=== PATIENT | female | born 1990 | race Caucasian/White ===

== ENCOUNTER 2017-07-01 12:04 | Emergency (ER) | payer OTHER ==
[~2017-07-01] VITALS: Ht 165.1 cm; Wt 63.5 kg
[2017-07-01 12:13] VITALS: BP 119/75
--- NOTE | 2017-07-01 12:13 | NUR ---
PT AMBULATED TO BED 7.
--- NOTE | 2017-07-01 12:14 | NUR ---
26F BIB SELF C/O NASAL CONGESTION WITH COUGH X 2 DAYS.DENIES N/V/D; SKIN IS PINK/WARM/DRY; AAOX4 WITH EVEN AND STEADY GAIT; LUNGS CLEAR BL; HR EVEN AND REGULAR; PT DENIES ANY FEVER, CP OR SOB AT THIS TIME; PATIENT STATES PAIN OF 0/10 AT THIS TIME; VSS; PATIENT POSITIONED FOR COMFORT; HOB ELEVATED; BEDRAILS UP X2; BED DOWN. ER MD MADE AWARE OF PT STATUS.
--- NOTE | 2017-07-01 12:30 | NUR ---
ER MD DR. MARTINO EVALUATING PT AT BEDSIDE.
[2017-07-01 12:40] VITALS: BP 129/85
--- NOTE | 2017-07-01 12:40 | NUR ---
Patient discharged with v/s stable. Written and verbal after care instructions given and explained. Patient verbalized understanding. Ambulatory with steady gait. All questions addressed prior to discharge. Advised to follow up with PMD.
== END 2017-07-01 12:40 | disposition home or self-care (01) ==
LOC: EEVIPCON 12:04 → MED 12:04
DX: J01.90 Acute sinusitis, unspecified (principal); J20.9 Acute bronchitis, unspecified; J45.909 Unspecified asthma, uncomplicated
CPT/HCPCS: 99281

== ENCOUNTER 2017-10-12 10:13 | Emergency (ER) | payer OTHER ==
[~2017-10-12] VITALS: Ht 167.6 cm; Wt 63.5 kg
[2017-10-12 10:18] VITALS: BP 123/76
--- NOTE | 2017-10-12 10:18 | NUR ---
Patient to bed 07.
--- NOTE | 2017-10-12 10:28 | NUR ---
PT PRESENTS TO ER W/C/O NON RADIATING SHARP CHEST PAIN SINCE THIS AM.PT STATES SHE'S HAD INTERMITTENT CHEST PAIN OVER THE PAST 2 WEEKS, WITH LAST EPISODE LAST NOC, BUT THIS AM THE PAIN BECAME MORE INTENSE. PT ALSO STATES PAIN IS IN CENTER OF HER CHEST.DENIES N/V/D; SKIN IS PINK/WARM/DRY; AAOX4 WITH EVEN AND STEADY GAIT; HR EVEN AND REGULAR; PT DENIES ANY FEVER COUGH AT THIS TIME; PATIENT STATES PAIN OF 8/10 AT THIS TIME;PATIENT POSITIONED FOR COMFORT; HOB ELEVATED; BEDRAILS UP X2; BED DOWN. ER MD MADE AWARE OF PT STATUS.
[2017-10-12] MEDS ORDERED: ASPIRIN 81 MG TAB.CHEW PO ONE (10:30)
[2017-10-12] MEDS ORDERED: NACL 0.9% 1,000 ML IV ONE (10:30)
[2017-10-12] MEDS ORDERED: KETOROLAC 30 MG/ML VIAL IVP ONE (11:10)
[2017-10-12 11:25] LABS: ALBUMIN 3.8 g/dL (3.4-5.0); CREATININE 0.7 mg/dL (0.6-1.3); TOTAL BILIRUBIN 0.6 mg/dL (0.0-1.0)
[2017-10-12 11:29] LABS: PROTHROMBIN TIME 10.4 secs (10.8-13.4)
[2017-10-12 11:38] LABS: RED BLOOD CELL COUNT(AUTO) 4.48 MIL/uL (4.20-5.40); WHITE BLOOD COUNT (AUTO) 6.3 K/uL (4.8-10.8)
[2017-10-12 11:39] LABS: EOSINOPHILS % (AUTO) 3.4 % (0.0-4.0); HEMATOCRIT 39.6 % (36-48); HEMOGLOBIN 13.6 g/dL (12.0-16.0); MEAN CORPUSCULAR HEMOGLOBIN 30 pg (27-31); MEAN CORPUSCULAR HGB CONC 34 g/dL (33-37); MEAN CORPUSCULAR VOLUME 88 fL (80-94); MONOCYTES % (AUTO) 9.4 % (1.7-9.3); NEUTROPHILS % (AUTO) 57.7 % (42.2-75.2); PLATELET COUNT (AUTO) 298 K/uL (140-450); RED CELL DISTRIBUTION WIDTH 13.1 % (11.6-13.7)
[2017-10-12 11:40] LABS: BASOPHILS % (AUTO) 0.5 % (0.0-2.0); EOSINOPHILS # (AUTO) 0.2 K/uL (0-0.4); LYMPHOCYTES # (AUTO) 1.6 K/uL (2.5-16.5); MONOCYTES # (AUTO) 0.6 K/uL (0.8-1.0); NEUTROPHILS # (AUTO) 3.6 K/uL (1.8-7.7)
[2017-10-12 12:33] VITALS: BP 101/63
--- NOTE | 2017-10-12 12:33 | NUR ---
Patient discharged with v/s stable. Written and verbal after care instructions given and explained. Patient alert, oriented and verbalized understanding of instructions. Ambulatory with steady gait. All questions addressed prior to discharge. ID band removed. Patient advised to follow up with PMD. Rx of PREDNISONE AND MOTRIN given. Patient educated on indication of medication including possible reaction and side effects. Opportunity to ask questions provided and answered.
== END 2017-10-12 12:33 | disposition home or self-care (01) ==
LOC: MED 10:13
DX: R09.1 Pleurisy (principal); R03.0 Elevated blood-pressure reading, without diagnosis of hypertension; J45.909 Unspecified asthma, uncomplicated
CPT/HCPCS: 36415; 71010; 80053; 84484; 85025; 85610; 85730; 93005; 96361; 96374; 99285; J1885; J7030

== ENCOUNTER 2017-10-13 14:41 | Emergency (ER) | payer OTHER ==
[~2017-10-13] VITALS: Ht 167.6 cm; Wt 63.5 kg
[2017-10-13 14:42] VITALS: BP 124/93
--- NOTE | 2017-10-13 14:45 | NUR ---
Patient to bed 11.
--- NOTE | 2017-10-13 14:53 | NUR ---
Dr. Rausch evaluating patient at bedside.
[2017-10-13] MEDS ORDERED: predniSONE 20 MG TAB PO ONE (15:00)
[2017-10-13] MEDS ORDERED: KETOROLAC 30 MG/ML VIAL IM ONE (15:00)
--- NOTE | 2017-10-13 15:00 | NUR ---
EKG at bedside.
[2017-10-13 15:36] LABS: BASOPHILS # (AUTO) 0.3 K/uL (0.00-0.22); EOSINOPHILS # (AUTO) 0.1 K/uL (0-0.4); HEMATOCRIT 37.5 % (36-48); HEMOGLOBIN 12.9 g/dL (12.0-16.0); LYMPHOCYTES # (AUTO) 1.4 K/uL (2.5-16.5); MEAN CORPUSCULAR HEMOGLOBIN 30 pg (27-31); MEAN CORPUSCULAR HGB CONC 35 g/dL (33-37); MEAN CORPUSCULAR VOLUME 87 fL (80-94); MONOCYTES # (AUTO) 0.7 K/uL (0.8-1.0); NEUTROPHILS # (AUTO) 6.4 K/uL (1.8-7.7); PLATELET COUNT (AUTO) 321 K/uL (140-450); RED BLOOD CELL COUNT(AUTO) 4.31 MIL/uL (4.20-5.40); RED CELL DISTRIBUTION WIDTH 12.7 % (11.6-13.7); WHITE BLOOD COUNT (AUTO) 8.9 K/uL (4.8-10.8)
[2017-10-13 15:44] LABS: APPEARANCE,URINE CLEAR (CLEAR); BILIRUBIN,URINE NEGATIVE (NEGATIVE); BLOOD, URINE 3+ (NEGATIVE); COLOR,URINE YELLOW (YELLOW); LEUKOCYTE ESTERASE ,URINE NEGATIVE (NEGATIVE); NITRITE, URINE NEGATIVE (NEGATIVE); UGLUCOSE NEGATIVE (NEGATIVE)
[2017-10-13 15:48] LABS: ANION GAP 12.5 (8-16); CARBON DIOXIDE 25.3 mmol/L (21-32); CREATININE 0.7 mg/dL (0.6-1.3); POTASSIUM 3.8 mmol/L (3.5-5.1)
[2017-10-13 15:54] LABS: ALBUMIN 3.5 g/dL (3.4-5.0); TOTAL BILIRUBIN 0.4 mg/dL (0.0-1.0)
[2017-10-13 16:05] LABS: RBC,URINE 0-5 (RARE) /HPF (0-5); WBC,URINE 0-5 (RARE) /HPF (0-5)
--- NOTE | 2017-10-13 16:37 | NUR ---
DISPO AND MEDICAL DECISION MAKING, DC HOME WITH INSTRUCTIONS. PATIENT VERBALIZING RELIEF FROM SYMPTOMS. ALL INSTRUCTIONS UNDERSTOOD BY PATIENT WELL. VSWNL, NO DISTRESS.
[2017-10-13 16:39] VITALS: BP 105/68
== END 2017-10-13 16:40 | disposition home or self-care (01) ==
LOC: MED 14:41
DX: M94.0 Chondrocostal junction syndrome [Tietze] (principal); J45.909 Unspecified asthma, uncomplicated
CPT/HCPCS: 36415; 80053; 81001; 81025; 84484; 85025; 85379; 93005; 96372; 99285; J1885; J7512

== ENCOUNTER 2017-12-17 10:27 | Outpatient (CLI) | payer OTHER ==
[2017-12-17 11:08] LABS: BASOPHILS # (AUTO) 0.2 K/uL (0.00-0.22); BASOPHILS % (AUTO) 2.6 % (0.0-2.0); EOSINOPHILS # (AUTO) 0.1 K/uL (0-0.4); EOSINOPHILS % (AUTO) 1.7 % (0.0-4.0); HEMATOCRIT 38.3 % (36-48); HEMOGLOBIN 12.4 g/dL (12.0-16.0); LYMPHOCYTES # (AUTO) 1.1 K/uL (2.5-16.5); LYMPHOCYTES % (AUTO) 14.6 % (20.5-51.1); MEAN CORPUSCULAR HEMOGLOBIN 29 pg (27-31); MEAN CORPUSCULAR HGB CONC 32 g/dL (33-37); MEAN CORPUSCULAR VOLUME 89 fL (80-94); MONOCYTES # (AUTO) 0.5 K/uL (0.8-1.0); MONOCYTES % (AUTO) 6.3 % (1.7-9.3); NEUTROPHILS # (AUTO) 5.6 K/uL (1.8-7.7); NEUTROPHILS % (AUTO) 74.8 % (42.2-75.2); PLATELET COUNT (AUTO) 262 K/uL (140-450); RED BLOOD CELL COUNT(AUTO) 4.31 MIL/uL (4.20-5.40); RED CELL DISTRIBUTION WIDTH 12.9 % (11.6-13.7); WHITE BLOOD COUNT (AUTO) 7.5 K/uL (4.8-10.8)
[2017-12-17 11:27] LABS: APPEARANCE,URINE HAZY (CLEAR); BILIRUBIN,URINE NEGATIVE (NEGATIVE); BLOOD, URINE NEGATIVE (NEGATIVE); COLOR,URINE YELLOW (YELLOW); LEUKOCYTE ESTERASE ,URINE NEGATIVE (NEGATIVE); NITRITE, URINE NEGATIVE (NEGATIVE); PH,URINE 6.5 (5.0-9.0); UGLUCOSE NEGATIVE (NEGATIVE)
[2017-12-18 16:21] LABS: HEPATITIS B SURFACE ANTIGEN Negative (Negative)
== END 2017-12-17 20:27 | disposition home or self-care (01) ==
LOC: MLB 10:27
PROVIDERS: ATTEND Obstetrics & Gynecology
DX: Z34.90 Encounter for supervision of normal pregnancy, unspecified, unspecified trimester (principal); N30.00 Acute cystitis without hematuria
CPT/HCPCS: 36415; 81003; 83036; 84702; 85025; 86592; 86702; 86762; 86886; 86900; 86901; 87340